=== PATIENT | female | born 1955 | race Caucasian/White ===

== ENCOUNTER → 2024-02-09 | Outpatient (CLI) | payer MEDICARE, OTHER ==
[~2024-02-09] MED LIST: CALCIUM 500 W/V1 TAB; METFORMIN500 MG; MULTIPLE VITAMI1 TAB; PREVACID15 MG
== END | disposition home or self-care (01) ==
LOC: RAD 01:38
PROVIDERS: ATTEND Family Medicine
DX: N95.0 Postmenopausal bleeding (principal); E55.9 Vitamin D deficiency, unspecified; Z78.0 Asymptomatic menopausal state; Z85.3 Personal history of malignant neoplasm of breast